=== PATIENT | female | born 1960 | race Caucasian/White ===

== ENCOUNTER → 2018-01-08 | Day surgery (SDC) | payer BC ==
[~2018-01-08] MED LIST: ACETAMINOPHEN 1000 MG/100 ML 100 ML IV ONE; ISOSULFAN BLUE 50 MG/5 ML VIAL SQ ONE; LACTATED RINGER'S 1000 ML INJ 1,000 ML ONE; LIDOCAINE 1%/EPINEPHrine 1:100,000 SOLN 50 ML VIAL ONE; MIDAZOLAM HCL 2 MG/2 ML VIAL ONE; ONDANSETRON HCL 4 MG/2 ML VIAL IV PUSH ONE; PROPOFOL 200 MG/20 ML AMP IV ONE; SODIUM CHLORIDE 0.9% 100 ML ADDBAG IV ONE; SODIUM CHLORIDE 0.9% 250 ML ADDBAG IV ONE; VANCOMYCIN HCL 1000 MG VIAL ONE; ceFAZolin INJ 1,000 MG VIAL ONE
--- NOTE | 2018-01-08 14:13 | MP ---
cc: BESS ANGLIN M.D., [place] DATE OF SURGERY 01/08/2018 PROCEDURE 1. Excision sentinel lymph nodes, left axilla x3. 2. Needle-localized wide local excision, left breast. PREOPERATIVE DIAGNOSIS High grade DCIS, left breast. POSTOPERATIVE DIAGNOSIS High grade DCIS, left breast. ANESTHESIA LMA. SURGEON Eren. ESTIMATED BLOOD LOSS 30 mL. FLUIDS 750 mL crystalloid. COMPLICATIONS None. DRAINS None. SPECIMEN Left axillary sentinel nodes and left breast needle-localized tissue to pathology. PROCEDURE IN DETAIL The patient was seen in the holding area and the left breast marked by the undersigned and confirmed by the patient. The patient was taken to the operating room and placed on the operating table in the supine position. She underwent laryngeal mask anesthesia. The nurse practitioner was present throughout the entirety of the procedure. Her presence was required for assistance, exposure, retraction, and resection of important structures. A timeout was taken confirming the correct patient, site and procedure to procedures to be performed. The skin and subcutaneous tissue was infiltrated with local anesthetic and an incision made in the left axilla directly over where the radiologist had indicated the sentinel nodes were located. The Navigator probe was used to direct the dissection down into the axilla. A total of three axillary lymph nodes were removed which had substantial activity above background. When this was completed, no further activity above background was noted and palpation of the axilla revealed no clinically suspicious nodes. The wound was made hemostatic and the wound then closed with interrupted 3-0 Vicryl suture and 5-0 PDS in a running subcuticular fashion. This was toweled off and attention then turned to the breast. A circumareolar incision was made and dissection carried out laterally to the needle insertion site which was at approximately the 5 o'clock position. This was cut at the skin and brought into the wound. A core of tissue was removed including the needle that extended back to behind the nipple but deep. The specimen was completely excised sharply, marked with silk sutures and passed off the table. The wound was made hemostatic and while doing this, the radiologist contacted us to confirm that the lesion was present in the specimen. The wound was closed in two layers with interrupted 3-0 Vicryl suture and 5-0 PDS in a running subcuticular fashion. Both wounds were then dressed with Steri-Strips. The patient was extubated and taken back to the recovery room in stable condition. She tolerated the procedure well. MD RENUKA Case/JENNIFER /12:43 PM /2:00 PM
== END | disposition home or self-care (01) ==
LOC: ESDC 06:36
PROVIDERS: ATTEND Surgery Trauma Surgery
DX: D05.12 Intraductal carcinoma in situ of left breast (principal)
CPT/HCPCS: 00400; 01610; 19125; 38525; 88307; J0131; J0690; J2250; J2405; J3010; J3370; J7120; Q9968

== ENCOUNTER → 2018-01-23 | Day surgery (SDC) | payer BC ==
[~2018-01-23] MED LIST changes: -ISOSULFAN BLUE 50 MG/5 ML VIAL SQ ONE; +LIDOCAINE 1%/EPINEPHrine 1:100,000 SOLN 30 ML VIAL ONE; -LIDOCAINE 1%/EPINEPHrine 1:100,000 SOLN 50 ML VIAL ONE; +SODIUM CHLOR 0.9% 250 ML INJ 250 ML IV ONE; -SODIUM CHLORIDE 0.9% 100 ML ADDBAG IV ONE; -SODIUM CHLORIDE 0.9% 250 ML ADDBAG IV ONE
--- NOTE | 2018-01-23 16:39 | MP ---
cc: Jean Paul Jason MD, Alvaro R MD Bhogal, Marjorie 0 MD Shoemaker, James R DO DATE OF OPERATION: 01/23/2018 PROCEDURE: Reexcision, left breast. 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 ANESTHESIA: LMA. SURGEON: Jean Paul Jason MD ESTIMATED BLOOD LOSS: Less than 10 mL. FLUIDS: 650 mL crystalloid. COMPLICATIONS: None. DRAINS: NONE. SPECIMEN: Left breast reexcised tissue, to pathology. PROCEDURE IN DETAIL: The patient was seen in the holding area and the left breast marked by the undersigned and confirmed by the patient. She was taken to the operating room and placed on the operating table in the supine position. After an adequate level of laryngeal mask anesthesia was instituted, the breast was prepped and draped in the usual fashion. Time-out was taken, confirming the correct patient, site, and procedure to be performed. Skin and subcutaneous tissue was infiltrated with local anesthetic and an incision made around the previous breast incision. The skin was sent for specimen and all seroma was aspirated. A new posterior margin was then removed with electrocautery. Dissection was carried down to the pectoralis muscle. The specimen was oriented with silk sutures and passed off the table. All bleeding was meticulously controlled with electrocautery. The remaining local anesthetic was placed into the cavity and the wound closed in 2 layers with interrupted 3-0 Vicryl suture and 5-0 PDS in a running subcuticular fashion. The wound was dressed with Steri-Strips. The patient was taken back to the recovery room in stable condition. Sponge, needle, and instrument counts were reported to be correct. Jean Paul Jason MD MAF/TI , 04:20 PM , 04:38 PM
== END | disposition home or self-care (01) ==
LOC: ESDC 13:19
PROVIDERS: ATTEND Surgery Trauma Surgery
DX: D05.12 Intraductal carcinoma in situ of left breast (principal)
CPT/HCPCS: 00400; 19301; 88305; 88307; J0131; J0690; J2250; J2405; J3010; J3370; J7050; J7120